=== PATIENT | male | born 1990 ===

== ENCOUNTER 2016-09-16 23:21 | Emergency (ER) | payer OTHER ==
[2016-09-17] MEDS ORDERED: Oxycodone/Acetaminophen 5/325 mg Tab PO STA (00:31)
[2016-09-17] MEDS ORDERED: Oxycodone/Acetaminophen 5/325 mg Tab ONE (00:37)
--- NOTE | 2016-09-17 01:25 | C.PDOC ---
History Of Present Illness 26 year old patient presents to the ED complaining of twisting his right ankle while playing soccer 30 minutes prior to arrival. Patient states he was playing at a [facility] [employer] in [place]. He felt it was dislocated so he tried to reduce it. He popped it back into place. Patient noted moderate swelling and pain. Time Seen by Provider: 09/16/16 23:35 Chief Complaint (Nursing): Lower Extremity Problem/Injury History Per: Patient History/Exam Limitations: no limitations Onset/Duration Of Symptoms: Mins (30 minutes prior to arrival) Current Symptoms Are (Timing): Still Present Severity: Moderate Pain Scale Rating Of: 7 Recent travel outside of the [place]: No - Ankle/Foot Description Of Injury: Twisted Currently Unable To: Bear Weight, Straighten, Bend Or Move Past Medical History Reviewed: Historical Data, Nursing Documentation, Vital Signs Vital Signs: Last Vital Signs Temp 97.8 F 09/17/16 03:06 Pulse 70 09/17/16 03:06 Resp 18 09/17/16 03:06 BP 116/75 09/17/16 03:06 Pulse Ox 100 09/17/16 04:33 Family History: States: Unknown Family Hx - Social History Hx Tobacco Use: No Hx Alcohol Use: Yes Hx Substance Use: No - Immunization History Hx Tetanus Toxoid Vaccination: No Hx Influenza Vaccination: No Hx Pneumococcal Vaccination: No Review Of Systems Except As Marked, All Systems Reviewed And Found Negative. Musculoskeletal: Positive for: Other (right ankle pain) Physical Exam - Physical Exam Appears: Non-toxic, No Acute Distress Skin: Warm, Dry Cardiovascular: Rhythm Regular Extremity: No Pedal Edema, No Calf Tenderness, Capillary Refill (<2 seconds), Other (right ankle: (+)moderate swelling to entire ankle and proximal forefoot; (+)good pedal pulse (+)capillary refill <2 seconds (+)unable to ambulate) Neurological/Psych: Oriented x3, Normal Speech, Normal Cognition Gait: Unable To Assess ED Course And Treatment O2 Sat by Pulse Oximetry: 100 (RA) Pulse Ox Interpretation: Normal - Other Rad right tibia/Fibular x-ray X-Ray: Interpreted by Me, Viewed By Me Interpretation: trimalleolar fracture to the right ankle right ankle X-Ray: Interpreted by Me, Viewed By Me Interpretation: trimalleolar fracture to the right ankle Progress Note: Right tibia/fibula and right ankle x-ray taken. Motrin given for the pain. Pain persisted. Percocet was given. Patient felt minimal improvement of pain. Morphine given. Case discussed with Dr. Ladd who is aware of and agrees with the plan. Dr. Ladd discussed the case with Dr. Gutierrez who recommends applying a splint to the patient's leg and having him follow up at the clinic for an evaluation. Patient is put in a well padded splint and crutches are given to assist with ambulation. RLE CT done amd patient is discharged and instructed to follow up at the clinic on as instructed. Return if symptoms worsen. Disposition Counseled Patient/Family Regarding: Studies Performed, Diagnosis, Need For Followup, Rx Given - Disposition Referrals: [facility] [Outside] [facility] [Outside] Tevin Gutierrez MD [Staff Provider] - Disposition: HOME/ ROUTINE Disposition Time: 01:22 Condition: GOOD Additional Instructions: Grant follow up in Ortho clinic downstairs this 09/19/16 at 8 AM Elevate leg Take pain meds as directed Return to ER if worse Prescriptions: Ibuprofen [Motrin] 600 mg PO Q6H #30 tab oxyCODONE/Acetaminophen [Percocet 5/325 mg Tab] 1 tab PO TID PRN #14 tab PRN Reason: Pain, Severe (8-10) Instructions: Ankle Fracture (ED) Forms: Work Excuse Print Language: MOROCCAN - Clinical Impression Clinical Impression: Ankle fracture, right - PA / BUILDING PERFORMANCE SPECIALIST / Resident Statement MD/DO has reviewed & agrees with the documentation as recorded. - Scribe Statement The provider has reviewed the documentation as recorded by the Scribe Shelly Menendez All medical record entries made by the Scribe were at my direction and personally dictated by me. I have reviewed the chart and agree that the record accurately reflects my personal performance of the history, physical exam, medical decision making, and the department course for this patient. I have also personally directed, reviewed, and agree with the discharge instructions and disposition.
--- NOTE | 2016-09-17 02:52 | CT ---
EXAM: CT Right Lower Extremity Without Intravenous Contrast, Ankle. CLINICAL HISTORY: 26 years old, male; Injury or trauma; Fall; Initial encounter; Fracture, traumatic; Closed fracture; Ankle; Right; Not specified; Additional info: Ankle fracture S/P sports injury TECHNIQUE: Axial computed tomography images of the right ankle without intravenous contrast. This CT exam was performed using one or more of the following dose reduction techniques: automated exposure control, adjustment of the mA and/or kV according to patient size, and/or use of iterative reconstruction technique. Coronal and sagittal reformatted images were created and reviewed. EXAM DATE/TIME: Exam ordered 09/17/2016 1:27 AM COMPARISON: No relevant prior studies available. FINDINGS: Bones/joints: There is a displaced fracture of the medial malleolus with separation of the minor distal fragment from the shaft of approximately 16 mm. In addition, there is a small bony fragment at the posterior aspect of the tibial shaft with an adjacent chip is seen sagittal series 602 image 49 and adjacent. There is an oblique fracture of the distal fibula as well seen sagittal series 602 minutes 30 and adjacent, some adjacent very small fragments in keeping with slight comminution. There is relatively little displacement with posterior subluxation of the minor distal fragment by approximately 6 mm and a small amount of override. There is gross disruption of the ankle mortise. There is an incidental finding of a multipartite os trigonum, acute fracture of the talus is not favored. Soft tissues: There is extensive soft tissue edema about the ankle both medially and laterally. Other findings: IMPRESSION: Fracture of the posterior lip of the tibia, displaced fracture of the medial malleolus, oblique fracture with mild comminution of the distal fibula, gross disruption of the ankle mortise. Noting the degree of displacement, clinical correlation for possibility of neurologic or vascular injury is advised.
[2016-09-17 03:07] VITALS: BP 116/75; PULSE 70; RESP 18; TEMP 97.8
[2016-09-17 03:48] VITALS: O2SAT 100
--- NOTE | 2016-09-17 08:39 | RAD ---
PROCEDURE: Right Ankle Radiographs. HISTORY: pain, twisting injury COMPARISON: None FINDINGS: BONES: A trimalleolar fracture is suggested the medial malleoli are fracture fragment is 8 mm is displaced inferiorly and laterally, the distal fibular head fracture is displaced 5 mm laterally any sliver like posterior malleolar fracture fragment is not significantly displaced. An incidental os trigonum is also noted JOINTS: The ankle mortise is widened particularly the medial clear space SOFT TISSUES: Swollen OTHER FINDINGS: None. IMPRESSION: Trimalleolar fracture with displacements and surrounding joint marked soft tissue swelling
--- NOTE | 2016-09-17 08:42 | RAD ---
PROCEDURE: Radiographs of the right tibia and fibula. HISTORY: r/o fx COMPARISON: None available. TECHNIQUE: Frontal and lateral views obtained. FINDINGS: BONES: The multiple ankle level fractures are less clearly seen on this tib-fib please note the same-day right ankle x-ray report. JOINT SPACES: Soft tissue swelling. OTHER FINDINGS: None. IMPRESSION: Multiple ankle level fractures present -much more clearly depicted on the ankle x-ray study - please note that report. No more proximal tibial fibular fractures noted. At ankle level trimalleolar fracture fragments were described An incidental os trigone is also noted
== END 2016-09-17 03:06 | disposition home or self-care (01) ==
LOC: C.ER 23:21
DX: S82.851A Displaced trimalleolar fracture of right lower leg, initial encounter for closed fracture (principal); X50.1XXA Overexertion from prolonged static or awkward postures, initial encounter; Y93.66 Activity, soccer; Y92.39 Other specified sports and athletic area as the place of occurrence of the external cause
CPT/HCPCS: 29515; 73590; 73610; 73700; 96372; 99284; J2270

== ENCOUNTER 2016-10-08 06:24 | Day surgery (SDC) | payer OTHER ==
[2016-09-26 08:14] VITALS: BMI 36.3
[2016-10-08] MEDS ORDERED: ceFAZolin IV 2 gm in Dextrose 50 ML IVPB ONE ×2 (07:39→13:16)
[2016-10-08] MEDS ORDERED: Midazolam 2 MG/2 ML VIAL ONE (07:56)
[2016-10-08] MEDS ORDERED: Propofol 10 mg/ml Inj (20 ML) ONE (07:56)
[2016-10-08] MEDS ORDERED: Bacitracin 50,000 UNIT in Sodium Chloride 0.9% Irrig 1,000 ML IR SCH (08:45)
[2016-10-08] MEDS ORDERED: Morphine 4 MG/ML VIAL ONE (10:02)
[2016-10-08] MEDS: Bupivacaine HCl 0.5% PF (10 ml) Inj ONE ×2 (10:26→11:30)
--- NOTE | 2016-10-08 11:42 | PCM.SURG1 ---
Surgeon's Initial Post Op Note - Surgeon's Notes Surgeon: JON Duran Clinical Application Manager: Leonard WEBB PGY3, [place] WEBB PGY2 Type of Anesthesia: General LMA Anesthesia Administered By: DO Harry Pre-Operative Diagnosis: Right Ankle - Displaced Bimalleolar Ankle Fracture Operative Findings: See Dictation. Anesthesia - General. Hemostasis - Right Pneumatic Thigh Tourniquet at 350mmHg for 122 minutes. EBL - 50mL. Materials - Synthes 3.5mm Hook Plate, Synthes 3.5mm 1/3 tubular locking plate, Synthes 3.5 non-locking cortical screws, Synthes 4.0 Cancellous screws, 2-0 Vicryl, 3-0 Vicryl, 4-0 Vicryl, Skin Porfirio, Xeroform, DSD, Posterior Splint. Injectables - 10mL of 0.5% Marcaine Plain. Condition - Stable. Complications - None Post-Operative Diagnosis: Same Operation Performed: Right Ankle - ORIF Displaced Bimalleolar Ankle Fracture Specimen/Specimens Removed: None Estimated Blood Loss: EBL {In ML}: 50 Blood Products Given: N/A Drains Used: No Drains Post-Op Condition: Good Date of Surgery/Procedure: 10/08/16 Time of Surgery/Procedure: 11:42 (In PACU)
[2016-10-08] MEDS ORDERED: Oxycodone/Acetaminophen 5/325 mg Tab PO PRN ×2 (11:51)
[2016-10-08] MEDS: HYDROmorphone 0.5 mg/0.5 ml ISec IVP PRN ×3 (11:58→12:33)
[2016-10-08] MEDS ORDERED: Bupivacaine 0.5% Inj(30mL) ONE (12:37)
[2016-10-08 12:39] LABS: HEMATOCRIT 42.9 % (35.0-51.0)
[2016-10-08] MEDS ORDERED: Dexamethasone 4 mg/1 ml ONE (12:40)
--- NOTE | 2016-10-08 13:00 | PCM.ANESB2 ---
Popliteal Nerve Block - Popliteal Nerve Block Date of Procedure: 10/08/16 Anesthesiologist: Manohar Pre-Procedure Diagnosis: Right ankle bimalleolar fracture Post-Procedure Diagnosis: Right ankle bimalleolar fracture Procedure Performed: Popliteal Nerve Block Right - Procedure Popliteal Nerve Block: This procedure was explained to the patient that it is for post-operative pain management. Consent was obtained after a thorough discussion with the patient regarding the benefits and possible complications of local anesthetic block of the sciatic nerve at the popliteal level. The patient was brought to the operating room and standard monitors are applied. Time-out was held with the circulating nurse to confirm the correct surgery and the appropriate block. After applying oxygen by nasal cannula and administering IV Sedation, patient's operative leg was gently raised and supported and the groove in between the biceps femoris and vastus lateralis muscles was carefully palpated. The skin approximately 8cm above the popliteal crease was then marked. The ultrasound transducer was then applied to the posterior thigh approximately 8cm above the popliteal crease in the transverse plane and the sciatic nerve before its division was visualized lateral to the popliteal artery and in between the bicep femoris and semimembranosus/semitendinosus muscles. After identification, the lateral portion of the thigh was prepped with Betadine solution three times and Lidocaine 1% was injected subcutaneously for topical anesthesia. At this point, a # 21 gauge Stimuplex insulated 4 inch needle was inserted into pre-marked area and advanced in a perpendicular direction. The needle was inserted above the ultrasound transducer in-plane towards the sciatic nerve in a [id number] direction. Needle advancement was performed carefully under direct ultrasound visualization. After repeated negative aspiration, 20 cc of 0.5 % bupivicaine was injected. Under ultrasound guidance the local anesthetics were observed tenting the epidural sheath and surrounding the roots of the sciatic nerve. The needle was removed intact and sterile dressing was applied.
[2016-10-08] MEDS ORDERED: Lactated Ringer's 1,000 ML IV ONE (13:15)
[2016-10-08 14:02] VITALS: RESP 18
--- NOTE | 2016-10-08 15:32 | RAD ---
PROCEDURE: Right Ankle Radiographs. HISTORY: s/p right ankle orif COMPARISON: 09/19/2016 FINDINGS: BONES: Interval medial malleoli are sideplate with single horizontal and single diagonal fixing screw in place. Interval lateral stool fibular sideplate with 7 aunts fixing screws. One of these oblique screws transfixes the posterior malleolar fracture Other fractures noted - anatomical alignment without fracture fragment gross displacement apparent JOINTS: No osteoarthritis. Ankle mortise maintained. Possible small lucency versus summation effects projecting over the medial talar dome. SOFT TISSUES: Medial an lateral skin sutures OTHER FINDINGS: Casting splint material. IMPRESSION: Status post open reduction and internal fixation of a trimalleolar fracture
--- NOTE | 2016-10-08 16:31 | RAD ---
PROCEDURE: Intraoperative Fluoroscopy. HISTORY: RT. ANKLE fracture. FINDINGS: Fluoroscopic assistance was provided for right ankle fracture repair.
[2016-10-08 17:09] VITALS: BP 108/67; PULSE 82; TEMP 98; O2SAT 98
--- NOTE | 2016-10-09 20:16 | OP ---
PROCEDURE DATE: 10/08/2016 SURGEON: Candie Duran DPM. ASSISTANTS: 1. Satya Valle DPM, PGY-3. 2. Porfirio Lovelace DPM, PGY-2. FABRIC MACHINE OPERATOR: Dr. Wagner. PREOPERATIVE DIAGNOSIS: Right ankle displaced trimalleolar ankle fracture POSTOPERATIVE DIAGNOSIS: Right ankle trimalleolar ankle fracture. PROCEDURE: Right ankle open reduction with internal fixation of the displaced trimalleolar fracture. INDICATIONS: This is a 26-year-old male with the aforementioned diagnosis. The patient signed the consent form after careful explanation of all the risks, benefits, complications, and alternatives for the surgical procedure. There were no guarantees that were made, given or implied. PREPARATION: The patient was brought into the operating room, placed on the operating room table in the supine position. A well-padded pneumatic thigh tourniquet was placed on the patient's right thigh at the upper one-third thigh level. After induction of general anesthesia, the right lower extremity was then prepped and draped in the usual sterile manner. A timeout was performed. An Esmarch bandage was utilized to exsanguinate the right foot, ankle, and lower leg. The pneumatic thigh tourniquet was then inflated to 350 mmHg and then the procedure began. DESCRIPTION OF PROCEDURE: Attention was now directed to the lateral aspect of the patient's right ankle where an approximately 10-12 cm linear longitudinal incision was made overlying the lateral aspect of the patient's distal fibula. The incision was deepened through the subcutaneous tissues utilizing combination of sharp and blunt dissection. Care was taken to identify and retract all vital neurovascular structures and cauterize all bleeders as deemed necessary. Our incision was deepened down to the level of the periosteum of the fibula which once encountered, was linearly incised over the lateral aspect of the distal fibula. After the periosteal incision, the periosteal tissues were then dissected free of their osseous attachments, both anteriorly and posteriorly, and reflected thus exposing the distal fibula/lateral malleolus and displaced lateral malleolar fracture. Next, the surgical site was irrigated with a copious amount of normal sterile saline solution. Next, the fibular fracture site was then inspected and any periosteal and fibrotic tissue noted within the fracture site was then removed. Next, the capital fragment of the fibular fracture was then grasped with reduction forceps and then manually distracted along with manual ankle distraction in an attempt to relocate and manually reduce the distal fibula fracture. After multiple attempts of fibular fracture reduction, it was noted that soft tissue remained entrapped and was unable to allow reduction at this time. Next, our attention was then directed to the medial malleolar fracture site, where an approximately 6 cm curvilinear incision was made overlying the medial aspect of the medial malleolus. The incision was deepened through the subcutaneous tissues utilizing a combination of sharp and blunt dissection. Care was taken to identify and retract all vital neurovascular structures and cauterize all bleeders as necessary. The great saphenous vein was identified, mobilized and retracted dorsally out of the surgical field. Our dissection continued down to the level of the periosteum, which once encountered was then linearly incised over the medial malleolus. The periosteal tissues were then carefully dissected free, both anteriorly and posteriorly, and reflected thus revealing the medial malleolar fracture into the operative field. The surgical site was now irrigated with a copious amount of normal sterile saline solution. Next, any fibrotic and periosteal tissues noted within the fracture site were now debrided and removed as deemed necessary. Next, the capital fragment of the medial malleolar fracture was then further dissected free in order to more easily mobilize it into reduction. Next, after adequate mobilization of the medial malleolar fracture capital fragment, a dental pick was now utilized to grasp and reduce the medial malleolar fracture into a more anatomic alignment of the medial malleolus. While the medial malleolar capital fragment was held in manual reduction, the edges of the fracture site were then checked and noted to be congruent with the remaining tibia. Next, a K-wire was then driven from inferior to superior across the fracture site in order to serve as temporary fixation of the medial malleolus. After reduction of the medial malleolus, the lateral malleolus was now reduced again and the soft tissue was now noted to no longer impede our reduction. Next, the capital fragment of the lateral malleolus was then grasped and manually distracted and then realigned into a more anatomic alignment with the remaining shaft of the fibula. A reduction forceps was then placed across the fibular fracture site to serve as temporary fixation. Next, multiple intraoperative fluoroscopic images were taken of both the medial and lateral malleolus in order to confirm adequate reduction and that the temporary fixation of the medial malleolus did not enter the ankle joint. Next, a Synthes 3.5 mm one-third tubular 7-hole locking plate was now brought into the operative field and temporarily placed along the lateral aspect of the distal fibula. Next, the Synthes contouring device was now brought into the operative field and press molded to the fibular malleolus. The contouring device was now utilized to accurately bend the aforementioned plate to conform to the patient's distal fibular anatomy. Next, following standard AO principles and techniques, a Synthes 4.0 cortical screw was appropriately placed across the distal fibular fracture site with excellent compression noted. Next, the now contoured Synthes 7-hole plate was now applied to the lateral aspect of the distal fibula and then following standard AO principles and techniques, a combination of Synthes 3.5 locking and Synthes 4.0 cancellous screws were now inserted into the appropriate screw holes within the plate. The third most distal screw hole within the plate was intentionally left empty as it was overlapping the lag screw across the fibular fracture site. After that was completed and during the course of fixation application, multiple intraoperative fluoroscopic images were taken to confirm adequate placement and positioning of the distal fibular hardware. Next, the surgical site was irrigated with a copious amount of normal sterile saline solution and a wet lap sponge was now placed within the surgical site. Next, our attention now redirected back to the medial side of the patient's right ankle where the medial malleolar fracture was temporarily fixated. Next, a Synthes 3.5 mm hook plate was now sterilely passed onto the operative field and applied to the medial malleolus. The plate was contoured and bent in order to adequately sit flush against the distal aspect of the medial aspect of the tibia. Next, with our temporary fixation still held in place, 2 Synthes 3.5 mm nonlocking cortical screws were driven from medial to lateral through the 2 most superior holes within the hook plate. Prior to applying these screws, the hooks of the distal aspect of the plate were tamped down into place into the capital fragment of the medial malleolus. Next, multiple intraoperative images were taken to confirm adequate placement and positioning of the medial malleolar fracture and the hardware to the medial aspect of the tibia. Next, the temporary fixation pins were now removed and a Synthes 3.5 mm cortical screw was now inserted into the hook portion of the plate. Adequate reduction and hardware placement were then reconfirmed of the medial and lateral malleoli with intraoperative fluoroscopy. After that was completed and confirmed, the medial malleolar site was now irrigated with a copious amount of normal sterile saline solution. During the course of reduction of the medial and lateral malleoli, the posterior malleolus fracture fragment was noted to be reduced as well into a more anatomic alignment along the posterior aspect of the distal tibia. Next, the periosteum from both the medial and lateral surgical sites was now reapproximated with #2-0 Vicryl suture. The subcutaneous and subcuticular tissues, again from the medial and lateral surgical sites, were reapproximated with #2-0 and #3-0 Vicryl suture. The subcuticular tissues were reapproximated with #4-0 Vicryl suture and then the skin was reapproximated with skin leonard. Next, the patient received a postoperative injection consisting of 10 mL of 0.5% Marcaine plain in the form of a saphenous nerve block to the right lower extremity. Next, the right lower extremity was then cleansed and dried. Xeroform was then applied across both surgical sites and both surgical sites were now dressed with dry sterile dressings and a posterior splint. The pneumatic thigh tourniquet was deflated and removed prior to splint application. The posterior splint was applied with the ankle held in a 90-degree relationship to the lower leg. POSTOPERATIVE CONDITION: The patient tolerated the anesthesia and the procedure well and was escorted to the recovery room with his vital signs stable and his neurovascular status intact to the right lower extremity as noted by instantaneous hyperemia to all 5 digits of the right foot. The patient will be nonweightbearing to the right lower extremity with the use of axillary crutches. The patient will follow up with Dr. Duran in the [facility] podiatry clinic next week. The patient will be nonweightbearing to the right lower extremity. Satya Valle DPM Candie Duran DPM cc: [id number] TT: 10/09/2016 17:46:09 tn 10/09/2016 19:15:56 MTDD
== END 2016-10-08 16:55 | disposition home or self-care (01) ==
LOC: C.SDS 06:24
PROVIDERS: ATTEND Podiatrist Foot & Ankle Surgery
DX: S82.851A Displaced trimalleolar fracture of right lower leg, initial encounter for closed fracture (principal); W19.XXXA Unspecified fall, initial encounter; Y93.66 Activity, soccer
CPT/HCPCS: 27823; 36415; 73600; 76000; 80074; 85014; 85018; 86592; 86703; 86706; C1713; J0690; J1170; J2250; J2270; J2405; J2704; J3010; J7120

== ENCOUNTER 2016-11-14 21:40 | Emergency (ER) | payer OTHER ==
[2016-11-14 21:54] VITALS: BP 132/85; PULSE 85; RESP 18; TEMP 98.1; O2SAT 97
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
--- NOTE | 2016-11-15 11:46 | RAD ---
PROCEDURE: Right Ankle Radiographs.y HISTORY: trauma COMPARISON: None FINDINGS: BONES: Satisfactory position alignment of major fracture fragments distal fibula and tibia. Orthopedic hardware including endplate and fenestrated screws in expected locations. JOINTS: Normal. No osteoarthritis. Ankle mortise maintained. Talar dome intact SOFT TISSUES: Normal. OTHER FINDINGS: None. IMPRESSION: Satisfactory postoperative status. Detail obscured by overlying fiberglass cast.
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
== END 2016-11-14 23:50 | disposition home or self-care (01) ==
LOC: MERGE 21:40 → C.ER 21:40
DX: S80.02XA Contusion of left knee, initial encounter (principal); S80.01XA Contusion of right knee, initial encounter; S82.891G Other fracture of right lower leg, subsequent encounter for closed fracture with delayed healing; W10.9XXA Fall (on) (from) unspecified stairs and steps, initial encounter

== ENCOUNTER 2017-10-09 11:53 | Emergency (ER) | payer OTHER ==
[2017-10-09 11:53] VITALS: BMI 36.3
--- NOTE | 2017-10-09 13:46 | RAD ---
HISTORY: chest pain COMPARISON: No prior. TECHNIQUE: Chest PA and lateral FINDINGS: LUNGS: No active pulmonary disease. PLEURA: No significant pleural effusion identified. No pneumothorax apparent. CARDIOVASCULAR: Normal. OSSEOUS STRUCTURES: No significant abnormalities. VISUALIZED UPPER ABDOMEN: Normal. OTHER FINDINGS: None. IMPRESSION: No active disease.
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
[2017-10-09 14:39] VITALS: BP 138/75; PULSE 82; RESP 18; TEMP 97.9
[2017-10-09 19:33] VITALS: O2SAT 97
== END 2017-10-09 14:38 | disposition home or self-care (01) ==
LOC: C.ER 11:53
DX: M94.0 Chondrocostal junction syndrome [Tietze] (principal)

== ENCOUNTER 2018-01-23 22:01 | Emergency (ER) | payer OTHER ==
[2018-01-23 22:01] VITALS: BMI 36.3
[2018-01-23 22:20] VITALS: BP 116/74; PULSE 60; TEMP 98.4; O2SAT 95
[2018-01-23] MEDS ORDERED: Dexamethasone 4 mg/1 ml IM STA (23:08)
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
[2018-01-24 00:42] VITALS: RESP 20
--- NOTE | 2018-01-24 09:05 | RAD ---
Date of service: 01/23/2018 PROCEDURE: Radiographs of the Lumbar Spine. HISTORY: back pain, COMPARISON: No prior. FINDINGS: BONES: Straightened lumbar curvature without fracture or spondylolisthesis identified. Vertebral body heights are within normal limits throughout. No suspicious lytic or blastic change appreciated focally. DISC SPACES: Mild disc height loss at L5-S1 indicates an element of degenerative disc change. Remaining intervertebral disc heights are normal. OTHER FINDINGS: None. IMPRESSION: Limited degenerative disease L5-S1. Straightened lumbar curvature. No fracture or spondylolisthesis demonstrated.
== END 2018-01-24 00:41 | disposition home or self-care (01) ==
LOC: C.ER 22:01
DX: S33.5XXA Sprain of ligaments of lumbar spine, initial encounter (principal); X50.0XXA Overexertion from strenuous movement or load, initial encounter; Y93.B9 Activity, other involving muscle strengthening exercises; Y92.39 Other specified sports and athletic area as the place of occurrence of the external cause
CPT/HCPCS: 72100; 96372; 99283; J1100; J1885

== ENCOUNTER 2018-02-02 17:40 | Emergency (ER) | payer OTHER ==
[2018-02-02 17:41] VITALS: BMI 36.3
[2018-02-02 18:39] VITALS: TEMP 98.4
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
[2018-02-02] MEDS ORDERED: Lidocaine 5% Patch TD STA (19:31)
[2018-02-02] MEDS ORDERED: Dexamethasone 4 mg/1 ml IM STA (19:31)
[2018-02-02] MEDS ORDERED: Lidocaine 5% Patch TD ONE (19:38)
[2018-02-02 19:51] VITALS: BP 121/81; PULSE 79; RESP 16
[2018-02-02 21:30] VITALS: O2SAT 99
== END 2018-02-02 19:49 | disposition home or self-care (01) ==
LOC: C.ER 17:40
DX: M54.5 Low back pain (principal)
CPT/HCPCS: 96372; 99283; J1100; J1885